=== PATIENT | female | born 1975 | race Caucasian/White ===

== ENCOUNTER 2018-06-25 20:11 | Emergency (ER) | payer OTHER ==
[2018-06-25 20:57] VITALS: BP 159/99; PULSE 77; TEMP 97.6; BMI 32.9
--- NOTE | 2018-06-25 21:00 | PDOC ---
History of Present Illness - History of Present Illness Initial Comments: 06/25/18 21:08 The patient is a 42 year old female with no significant past medical history who presents to the ER with subjective fevers, cough, and generalized weakness for the past week. The patient states her cough is productive of clear phlegm with associated wheezing. Patient took sudafed with minimal relief of her symptoms. Patient notes that her children at home have been sick and she was taking care of them prior to the onset of these symptoms. The patient denies chest pain, shortness of breath, headache, and dizziness. Denies fever, chills, nausea, vomit, diarrhea, and constipation. Denies dysuria, frequency, urgency, and hematuria. Allergies: NKA Past surgical history: None reported. Social history: No reported alcohol, drug, or cigarette use. Adult ROS General: No fevers or chills, no weakness, no weight loss HEENT: No change in vision. No sore throat,. No ear pain CardioVascular: No chest pain or shortness of breath Respiratory: (+) Cough. (+) Wheezing. Gastrointestinal: no nausea, vomiting, diarrhea or constipation, No rectal bleeding Genitourinary: No dysuria, hematuria, or frequency Musculoskeletal: No joint or muscle pain or swelling Neurologic: No headache, vertigo, dizziness or loss of consciousness Psychiatric: nor depression Skin: No rashes or easy bruising Endocrine: no increased thirst or abnormal weight change Allergic: no skin or latex allergy All other systems reviewed and normal Adult Exam: General: Well-nourished well-developed individual, no acute distress HEENT: Throat: Normal, tonsils normal, no erythema or exudate Neck: Supple, no meningeal signs, no lymphadenopathy Eyes::Pupils equal reactive and round, extraocular motion intact Chest: Nontender to palpation Cardiac: S1-S2 normal, regular rate and rhythm, no murmurs rubs or gallops Respiratory: (+) Mild expiratory wheezing bilaterally. Abdomen: Soft, nondistended, normal bowel sounds, nontender to palpation diffusely Extremities: Warm, dry, no cyanosis, clubbing, or edema Skin: No rashes Neuro: Alert and oriented x3, nonfocal exam, grossly intact, normal gait Psych: Normal mood and affect <Elizabeth Oneil - Last Filed: 06/25/18 21:10> - General History Source: Patient Exam Limitations: No Limitations - History of Present Illness Initial Comments: 06/25/18 22:13 A portion of this note was documented by scribe services under my direction. I have reviewed the details of the note, within reason, and agree with the documentation. The case summary and management plan written by me. Chest x-ray no acute pathology Assessment plan: This is a 42-year-old female who comes in complaining of not feeling well. Patient has had approximately 1 week of upper respiratory tract type symptoms patient did have some mild wheezing here in the emergency room for which she was given a DuoNeb and some prednisone. Patient improved post nebulizer treatment. Patient's chest x-ray was negative for any acute process/ pneumonia. Prescription was sent patient's pharmacy for Ventolin and prednisone Patient discharged home will follow up with her primary care doctor <Jessica Larson I - Last Filed: 06/25/18 22:17> - General Chief Complaint: Weakness Stated Complaint: "I FEEL SICK", SORE THROAT, COUGH, WEAK Time Seen by Provider: 06/25/18 20:18 Past History <Elizabeth Oneil - Last Filed: 06/25/18 21:10> - Past Medical History COPD: No - Immunization History Td Vaccination: Yes Immunization Up to Date: Yes - Suicide/Smoking/Psychosocial Hx Smoking Status: No (E/CIGG LAST 2 WEEKS) Smoking History: Current some day smoker Have you smoked in the past 12 months: Yes Number of Cigarettes Smoked Daily: 2 If you are a former smoker, when did you quit?: 09/08/15 Cigars Per Day: 0 Information on smoking cessation initiated: Yes 'Breaking Loose' booklet given: 06/25/18 Hx Alcohol Use: (occasional) Drug/Substance Use Hx: No Substance Use Type: None <Jessica Larson I - Last Filed: 06/25/18 22:17> - Past Medical History Allergies/Adverse Reactions: Allergies Allergy/AdvReac Type Severity Reaction Status Date / Time Penicillins Allergy Hives Verified 06/25/18 20:13 Home Medications: Ambulatory Orders Albuterol Sulfate Inhaler - [Ventolin Hfa Inhaler -] 1 - 2 inh PO Q4H #1 inhaler 06/25/18 Ibuprofen [Motrin -] 400 mg PO ONCE 06/25/18 Multivitamin [Multiple Vitamins] 1 each PO DAILY 06/25/18 Prednisone [Deltasone] 40 mg PO DAILY #8 tablet 06/25/18 Pseudoephedrine HCl [Sudafed] 30 mg PO ASDIR 06/25/18 *Physical Exam - Vital Signs Last Vital Signs Temp Pulse Resp BP Pulse Ox 97.6 F 77 18 159/99 100 06/25/18 20:11 06/25/18 20:11 06/25/18 20:11 06/25/18 20:11 06/25/18 20:11 <Elizabeth Oneil - Last Filed: 06/25/18 21:10> - Vital Signs Last Vital Signs Temp Pulse Resp BP Pulse Ox 97.6 F 77 18 159/99 100 06/25/18 20:11 06/25/18 20:11 06/25/18 20:11 06/25/18 20:11 06/25/18 20:11 <Jessica Larson I - Last Filed: 06/25/18 22:17> ED Treatment Course - LABORATORY CBC & Chemistry Diagram: 06/25/18 21:24 06/25/18 21:24 <Jessica Larson I - Last Filed: 06/25/18 22:17> *DC/Admit/Observation/Transfer <Elizabeth Oneil - Last Filed: 06/25/18 21:10> - Discharge Dispostion Decision to Admit order: No <Jessica Larson I - Last Filed: 06/25/18 22:17> Diagnosis at time of Disposition: Asthmatic bronchitis Qualifiers: Asthma severity: mild Asthma persistence: intermittent - Discharge Dispostion Disposition: HOME Condition at time of disposition: Stable - Patient Instructions Additional Instructions: Get the prescription filled for the Ventolin inhaler use it 2 puffs as often as every 4-6 hours as needed. Take prednisone 40 mg a day for 4 days. Return to the emergency department immediately with ANY new, persistent or worsening symptoms. Continue any medications as previously prescribed by your physician. You should follow up with your primary doctor as soon as possible regarding today's emergency department visit. . Please make sure your doctor reviews the results of your emergency evaluation. Thank you for coming to the Emergency Department today for your care. It was a pleasure to see you today. Please note that your evaluation is INCOMPLETE until you follow-up with your doctor.
[2018-06-25] MEDS ORDERED: SODIUM CHLORIDE 1,000 ML IV ONE (21:05)
[2018-06-25] MEDS ORDERED: DEXAMETHASONE SOD PHOSPHATE 10 MG/1 ML VIAL IVPUSH ONE (21:07)
[2018-06-25] MEDS ORDERED: ALBUTEROL SO4 2.5/IPRATROPIUM 0.5 INH SOL 3 ML VIAL.NEB. NEB ONE ×2 (21:07→21:11)
[2018-06-25] MEDS ORDERED: DEXAMETHASONE SOD PHOSPHATE 10 MG/1 ML VIAL ONE (21:11)
[2018-06-25 21:34] LABS: BASO % 1.1 % (0-2.0); EOS % 6.2 % (0-4.5); HEMATOCRIT 39.1 % (32.4-45.2); HEMOGLOBIN 12.7 GM/dl (10.7-15.3); LYMPH % 32.8 % (8-40); MCH 26.7 pg (25.7-33.7); MCHC 32.5 g/dl (32.0-36.0); MEAN CELL VOLUME 82.2 fl (80-96); MEAN PLT VOLUME 8.7 fl (7.5-11.1); MONO % 5.7 % (3.8-10.2); NEUT % 54.2 % (42.8-82.8); PLATELET COUNT 160 K/MM3 (134-434); RBC 4.76 M/mm3 (3.60-5.2); RDW 15.1 % (11.6-15.6)
[2018-06-25 22:01] LABS: ALBUMIN 3.8 g/dl (3.5-5.0); ALK PHOS 50 U/L (32-92); ANION GAP 8 MMOL/L (8-16); BILIRUBIN,TOTAL 0.7 mg/dl (0.2-1.0); BLOOD UREA NITROGEN 9 mg/dl (7-18); CALCIUM 8.8 mg/dl (8.4-10.2); CHLORIDE 101 mmol/L (98-107); CO2 28 mmol/L (22-28); CREATININE 0.7 mg/dl (0.6-1.3); GLUCOSE,RANDOM 87 mg/dl (74-106); POTASSIUM 3.9 mmol/L (3.5-5.1); SGOT/AST 17 U/L (10-42); SGPT/ALT 23 U/L (10-40); SODIUM 137 mmol/L (136-145); TOT PROT 7.3 g/dl (6.4-8.3)
== END 2018-06-25 22:58 | disposition home or self-care (01) ==
LOC: FER 20:11
PROC: 3E0F7GC Introduction of Other Therapeutic Substance into Respiratory Tract, Via Natural or Artificial Opening (ICD-10-PCS; principal; 2018-06-25)
PROC: 3E033GC Introduction of Other Therapeutic Substance into Peripheral Vein, Percutaneous Approach (ICD-10-PCS; 2018-06-25)
PROC: 3E0337Z Introduction of Electrolytic and Water Balance Substance into Peripheral Vein, Percutaneous Approach (ICD-10-PCS; 2018-06-25)
DX: J45.909 Unspecified asthma, uncomplicated (principal); F17.210 Nicotine dependence, cigarettes, uncomplicated
CPT/HCPCS: 36415; 71045-TC-FY; 80053; 84703; 85025; 99284-25; J1100; J7030; J7620